=== PATIENT | female | born 2000 | race Caucasian/White ===

== ENCOUNTER → 2020-06-19 | Outpatient (CLI) | payer OTHER ==
--- NOTE | 2020-06-19 18:51 | REP ---
INDICATION: CONGENTIAL MALFORMATION OF VIGINIA. Evaluate vaginal wall for cyst. COMPARISON: None. TECHNIQUE: Transabdominal and transvaginal scanning were performed. FINDINGS: Uterine dimensions are normal at 7.9 x 2.9 x 3.6 cm. Endometrial echo is 0.2 cm thick and centrally placed. There is a trace of free fluid is seen in the cul-de-sac. Visualized bladder burris are smooth. There is a small elongate hypoechoic area in the vaginal wall to the left of midline measuring 2.4 x 0.9 x 1.6 cm consistent with the history of vaginal wall cyst. The right ovary has dimensions of 2.1 x 1.8 x 1.7 cm. Doppler flow is present in the ovaries bilaterally. The left ovary dimensions are normal as well at 1.9 x 1.1 x 1.1 cm. It's Doppler flow was normal with resistive index of . IMPRESSION: There is an anechoic structure in the vaginal wall to the left of midline consistent with a cyst, 2.4 cm in greatest diameter. Otherwise normal pelvic sonography. <Electronically signed by Dinesh Levy > 06/19/20 [id number]
== END ==
LOC: M RAD 16:06
PROVIDERS: ATTEND Obstetrics & Gynecology
DX: Q52.4 Other congenital malformations of vagina (principal)

== ENCOUNTER → 2020-06-30 | Outpatient (CLI) | payer OTHER ==
[~2020-06-30] MED LIST: NORE1TAB7
== END ==
LOC: M LABSMTC 08:34
PROVIDERS: ATTEND Anesthesiology
DX: Z01.812 Encounter for preprocedural laboratory examination (principal); Z20.822 Contact with and (suspected) exposure to COVID-19

== ENCOUNTER 2020-07-05 11:06 | Day surgery (SDC) | payer OTHER ==
[~2020-07-05] VITALS: Ht 170.2 cm; Wt 61.2 kg
[~2020-07-05 11:06] MED LIST changes: +LIDOCAINE 1% MDV 20ML VIAL SQ PRN; +LR 1,000 ML IV ONE
--- OUTSIDE RECORDS SUMMARY | 2020-07-05 11:13 | CCD | Continuity of Care Document ---
Author Author Rossy BENSON Organization Unknown Address [address] [place] [address] Phone [phone] Problems Description No Active Problems Social History Type Date Description Comments Sex Unknown Tobacco Use Start: Unknown Never Smoked Cigarettes Tobacco Use Start: Unknown Non-smoker, Non-drinker, Non-romario g User Smoking Status Reviewed: 06/06/20 Non-smoker, Non-drinker, Non- drug User Tobacco Use Start: Unknown Patient has never smoked Allergies, Adverse Reactions, Alerts Description No Known Drug Allergies Medications Active Medications SIG Qnty Indications Ordering Provide r Date Gildess 07/11 1-20mg-mcg Tablets one by mouth daily times 3 weeks then skip a week 63tabs Janell Montgomery WHNP 01/07/2018 Multivitamin Adult Tablets 1 by mouth every day Unknown Immunizations Description No Information Available Vital Signs Date Vital Result Comment 06/06/2020 2:42pm BP Systolic 122 mmHg BP Diastolic 64 mmHg Height 67.5 inches 5'7.50" Weight 136.00 lb BMI (Body Mass Index) 21.0 kg/m2 Body Mass Index Percentile 41 % BSA (Body Surface Area) 1.73 m2 01/24/2019 9:20am BP Systolic 108 mmHg BP Diastolic 66 mmHg Height 67.5 inches 5'7.50" Weight 136.00 lb BMI (Body Mass Index) 21.0 kg/m2 Body Mass Index Percentile 44 % BSA (Body Surface Area) 1.73 m2 Results Description No Information Available Procedures Description No Information Available Medical Devices Description No Information Available Encounters Type Date Location Provider Dx Diagnosis Office Visit 06/06/2020 2:45p [facility] third Haven Benson MD N9 4.12 Deep dyspareunia R10.813 Right lower quadrant abdomin al tenderness 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 Z01.411 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 ) (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) w abnormal findings Z12.4 Encounter for screening for malignant neoplasm of cervix Z12.39 Encounter for oth screening for malignant neoplasm of breast Assessments Date Code Description Provider 06/06/2020 N94.12 Deep dyspareunia Haven Benson MD 06/06/2020 R10.813 Right lower quadrant abdominal t enderness Haven Benson MD 06/06/2020 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 o f vagina Haven Benson MD 06/06/2020 Z01.411 Encounter for gyneco logical examination (general) (routine) with abnormal findings Haven Benson MD 06/06/2020 Z12.4 Encounter for screening for abisai gnant neoplasm of cervix Haven Benson MD 06/06/2020 Z12.39 Encounter for other screening for malignant neoplasm of breast Haven Benson MD Plan of Treatment Future Appointment(s):* 07/18/2020 11:45 am - Haven Benson MD at [facility] * 07/05/2020 11:00 am - Haven Benson MD at [facility] electrician third * 06/19/2021 10:00 am - Haven Benson MD at [facility] electrician third 06/06/2020 - Haven Benson MD* N94.12 Deep dyspareunia * R10.813 Right lower quadrant abdominal tenderness * 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
--- OUTSIDE RECORDS SUMMARY | 2020-07-05 11:13 | CCD ---
Author Author [facility] Organization [facility] Address Unknown Phone Unavailable Care Team Providers Care Tile Mechanic Name Role Phone Dewayne BENSON MD Unavailable Unavailable Dewayne BENSON MD Unavailable Unavailable Dewayne BENSON MD Unavailable Unavailable BENSON, L NILDA PERALTA Unavailable Unavailable BENSON, Dewayne MUNGUIA MD Unavailable Unavailable BENSON, L NILDA PERALTA Unavailable Unavailable BENSON L NILDA PERALTA Unavailable Unavailable BENSON L NILDA PERALTA Unavailable Unavailable BENSON L NILDA PERALTA Unavailable Unavailable BENSONDewayne MD Unavailable Unavailable BENSON L NILDA PERALTA Unavailable Unavailable BENSONDewayne MD Unavailable Unavailable BENSON, L NILDA PERALTA Unavailable Unavailable BENSONDewayne MD Unavailable Unavailable BENSON L NILDA PERALTA Unavailable Unavailable BENSON, L NILDA PERALTA Unavailable Unavailable BENSON, L NILDA PERALTA Unavailable Unavailable BENSON, L NILDA PERALTA Unavailable Unavailable BENSON, Dewayne MUNGUIA MD Unavailable Unavailable BENSON L NILDA PERALTA Unavailable Unavailable BENSON L NILDA PERALTA Unavailable Unavailable BENSON, L NILDA PERALTA Unavailable Unavailable BENSON, L NILDA PERALTA Unavailable Unavailable BENSON, L NILDA PERALTA Unavailable Unavailable BENSON L NILDA PERALTA Unavailable Unavailable BENSON, L NILDA PERALTA Unavailable Unavailable BENSONDewayne MD Unavailable Unavailable BENSON L NILDA PERALTA Unavailable Unavailable BENSON, Dewayne MUNGUIA MD Unavailable Unavailable KELLEY, L NILDA PERALTA Unavailable Unavailable BENSON, L NILDA PERALTA Unavailable Unavailable BENSON, L NILDA PERALTA Unavailable Unavailable BENSON, L NILDA PERALTA Unavailable Unavailable Dewayne BENSON MD Unavailable Unavailable Dewayne BENSON MD Unavailable Unavailable KELLEY L NILDA PERALTA Unavailable Unavailable KELLEY L NILDA PERALTA Unavailable Unavailable KELLEY L NILDA PERALTA Unavailable Unavailable KELLEY L NILDA PERALTA Unavailable Unavailable KELLEY L NILDA PERALTA Unavailable Unavailable KELLEY, L NILDA PERALTA Unavailable Unavailable KELLEY L NILDA PERALTA Unavailable Unavailable Re-disclosure Warning The records that you are about to access may contain information from federally-assisted alcohol or drug abuse programs. If such information is present, then the following federally mandated warning applies: This information has been disclosed to you from records protected by federal confidentiality rules (42 CFR part 2). The federal rules prohibit you from making any further disclosure of this information unless further disclosure is expressly permitted by the written consent of the person to whom it pertains or as otherwise permitted by 42 CFR part 2. A general authorization for the release of medical or other information is NOT sufficient for this purpose. The Federal rules restrict any use of the information to criminally investigate or prosecute any alcohol or drug abuse patient.The records that you are about to access may contain highly sensitive health information, the redisclosure of which is protected by Article 27-F of the [facility] Public Health law. If you continue you may have access to information: Regarding HIV / AIDS; Provided by facilities licensed or operated by the [facility] Office of Mental Health; or Provided by the [facility] Office for People With Developmental Disabilities. If such information is present, then the following [facility] mandated warning applies: This information has been disclosed to you from confidential records which are protected by state law. State law prohibits you from making any further disclosure of this information without the specific written consent of the person to whom it pertains, or as otherwise permitted by law. Any unauthorized further disclosure in violation of state law may result in a fine or assisted sentence or both. A general authorization for the release of medical or other information is NOT sufficient authorization for further disc losure. 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 CLERK) Unknown Unknown Problem MEDENT ([facility] Unknown Unknown Encounters Encounter Providers Location Date Indications Data Source(s ) Outpatient Attender: NILDA BENSON MD [facility] salon leader 01:45:00 PM EST MEDENT ([facility] COMPUTER FORWARDING SYSTEM MARKUP CLERK) Insurance Providers Payer name Policy type / Coverage type Policy ID Covered constitution party ID Covered constitution party's relationship to gan Policy Gan Plan Information [facility] [id number] MO2 [id number] [facility] [id number] MO2 [id number] UMR O UNAVAILABLE C UNAVAILA BLE Umr Commercial [id number] Family Dependent [id number] Umr Commercial [id number] Family Dependent Y1 [id number] [place] Ppo Commercial [id number] Family Dependent [id number] Umr Commercial [id number] Family Dependent Y1 [id number] Umr Commercial [id number] Family Dependent Y1 [id number] [place] Commercial [id number] Family Dependent [id number] [employer] Ppo Commercial [id number] Family Dependent [id number] [place] Commercial Family Dependent [place] Ppo Commercial Family Dependent POMCO PPO O [id number] [place] Commercial Family Dependent POMCO [id number] MO2 [id number] POMCO [id number] 18 [id number] Results ID Date Data Source [id number] 06/30/2020 08:30:00 AM EST [facility] Name Value Range Interpretation Code Description Data Haylee rce(s) Supporting Document(s) SARS coronavirus 2 RNA Not Detected [facility] This lab was ordered by [facility] and reported by [facility]. ID Date Data Source [id number] 06/06/2020 12:00:00 PM EST MEDENT ([facility] COMPUTER FORWARDING SYSTEM MARKUP CLERK) Name Value Range Interpretation Code Description Data Haylee rce(s) Supporting Document(s) TP Reflex HPV ASCUS Laboratory test result MEDENT ([facility] COMPUTER FORWARDING SYSTEM MARKUP CLERK) SPECIMEN PART------ A. Cervical, Endocervical, ThinPrep Pap (Route Service Manager) CYTOLOGY HX-------- Date of Last Menstrual Period: 06/04/20 Other Information:Previous Normal Pap: 01/24/19 Oral Contraceptives FINAL DIAGNOSIS---- INTERPRETATION: Negative for Intraepithelial Lesion or Malignancy. SPECIMEN ADEQUACY:Satisfactory for evaluation. Endocervical/transformation zone component present. TP Reflex HPV ASCUS Laboratory test result MEDENT ([facility] COMPUTER FORWARDING SYSTEM MARKUP CLERK) Procedure Social History Code Duration Value Status Description Data Source(s ) Smoking 06/06/2020 12:00:00 AM EST Non-smoker, Non-drink er, Non-drug User completed Non-smoker, Non-drinker, Non-drug User MEDENT (Raul Fishman man COMPUTER FORWARDING SYSTEM MARKUP CLERK) Vital Signs ID Date Data Source UNK Name Value Range Interpretation Code Description Data Source(s) Body surface area Derived from formula 1.73 m2 1.73 m2 MEDENT ([facility] [employer]PUTER FORWARDING SYSTEM MARKUP CLERK) Body mass index (BMI) [Percentile] 41 % 4 1 % MEDENT ([facility] [employer]PUTER FORWARDING SYSTEM MARKUP CLERK) Body mass index (BMI) [Ratio] 21.0 kg/m2 21.0 k g/m2 MEDENT ([facility] COMPUTER FORWARDING SYSTEM MARKUP CLERK) Body weight 136.00 [lb_av] 136.00 [lb_av] MEDEN T ([facility] COMPUTER FORWARDING SYSTEM MARKUP CLERK) Body height 67.5 [in_i] 67.5 [in_i] MEDENT (Erick harding Woman COMPUTER FORWARDING SYSTEM MARKUP CLERK) 5'7.50" Diastolic blood pressure 64 mm[Hg] 64 mm[Hg] MEDENT ([facility] COMPUTER FORWARDING SYSTEM MARKUP CLERK) Systolic blood pressure 122 mm[Hg] 122 mm[Hg] M EDENT ([facility] COMPUTER FORWARDING SYSTEM MARKUP CLERK)
--- OUTSIDE RECORDS SUMMARY | 2020-07-05 11:13 | CCD | Continuity of Care Document ---
Author Author Rossy BENSON Organization Unknown Address [address] [place] [phone] Phone [phone] Problems Description No Active Problems Social History [...] BSA (Body Surface Area) 1.73 m2 Results Test Acquired Date Facility Test Result H/L Range Note Thinprep W/Reflex HR HPV If Asc-US 06/06/2020 Propa th TP Reflex HPV ASCUS Normal Normal 1 TP Reflex HPV ASCUS SEE IMAGE 1 SPECIME N PART A. Cervical, Endocervical, ThinPrep Pap (Assembly Manager) CYTOLOGY HX-------- Date of Last Menstrual Period: 06/04/20 Other Information:Previous Normal Pap: 01/24/19 Oral Contraceptives FINAL DIAGNOSIS---- INTERPRETATION: Negative for Intraepithelial Lesion or Malignancy. SPECIMEN ADEQUACY:Satisfactory for evaluation. Endocervical/transformation zone component present. 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 ) (routine) w abnormal findings Z12.4 Encounter for screening for malignant neoplasm of cervix Z12.39 Encounter for ot screening for malignant neoplasm of breast Assessments [...] 11:45 am - Haven Benson MD at [facility] director of casework services * 07/05/2020 11:00 am - Haven Benson MD at [facility] * 06/19/2021 10:00 am - Haven Benson MD at [facility] director of casework services 06/06/2020 - Haven Benson MD* N94.12 Deep dyspareunia * R10.813 Right lower quadrant abdominal tenderness * 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
--- OUTSIDE RECORDS SUMMARY | 2020-07-05 11:13 | CCD | Continuity of Care Document ---
Author Author Rossy BENSON Organization Unknown Address [address] [place] [address] Phone [phone] Problems Description No Active Problems Social History Type Date Description Comments Sex Unknown Tobacco Use Start: Unknown Never Smoked Cigarettes Tobacco Use Start: Unknown Non-smoker, Non-drinker, Non-romario g User Smoking Status Reviewed: 01/24/19 Non-smoker, Non-drinker, Non- drug User Tobacco Use [...] Medical Devices Description No Information Available Encounters Description No Information Available Assessments Date Code Description Provider 06/06/2020 N94.12 [...] Benson MD Plan of Treatment Future Appointment(s):* 06/19/2021 10:00 am - Haven Benson MD at [facility] cover assembler 06/06/2020 - Haven Benson MD* N94.12 Deep [...]
[2020-07-05] MEDS ORDERED: LIDOCAINE 2% 100MG/5ML SDV (FOR ANES.) As Ordered ONE (14:36)
[2020-07-05] MEDS ORDERED: propofoL 200 MG/20 ML VIAL As Ordered ONE (14:36)
[2020-07-05] MEDS ORDERED: MIDAZOLAM INJ 2MG/2ML VIAL (J2250 PER 1MG) As Ordered ONE (14:42)
[2020-07-05] MEDS ORDERED: fentaNYL 100 MCG/2 ML INJECTION (J3010) As Ordered ONE ×3 (14:43→18:20)
[2020-07-05] MEDS ORDERED: dexameTHASONE 4 MG/ML 1ML VIAL (J1100 PER 1MG) As Ordered ONE (15:04)
[2020-07-05] MEDS ORDERED: ONDANSETRON 4MG/2ML VIAL As Ordered ONE ×2 (15:04→18:21)
[2020-07-05] MEDS ORDERED: ceFAZolin 2 GM/D5W 50 ML IV BAG (J0690 PER 500MG) As Ordered ONE (15:21)
[2020-07-05] MEDS ORDERED: METHYLENE BLUE 0.5% (5MG/ML) 10 ML AMP (PROVAYBLUE) As Ordered ONE (15:26)
[2020-07-05] MEDS ORDERED: LACRILUBE (AKWA TEARS) OPHTH OINT 3.5 GM As Ordered ONE (16:28)
[2020-07-05] MEDS ORDERED: CONRAY-60 60% 50ML VIAL (Q9961) As Ordered ONE (16:35)
[2020-07-05] MEDS ORDERED: KETOROLAC 60MG 2ML VIAL As Ordered ONE (17:37)
[2020-07-05] MEDS ORDERED: ACETAMINOPHEN 1000MG 100ML IV BTL (OFIRMEV) (J0131 PER 10MG) As Ordered ONE (17:37)
[2020-07-05] MEDS ORDERED: PERCOCET 5MG/325MG TAB As Ordered ONE (18:20)
[2020-07-05] MEDS: PERCOCET 5MG/325MG TAB PO PRN ×2 (18:38→20:06)
[2020-07-05] MEDS ORDERED: LR 1,000 ML IV SCH ×2 (18:45→19:00)
[2020-07-05] MEDS ORDERED: METOCLOPRAMIDE INJ 10MG/2ML VIAL (J2765 PER 1) IV PRN (18:45)
[2020-07-05] MEDS ORDERED: fentaNYL 100 MCG/2 ML INJECTION (J3010) IV PRN (18:45)
[2020-07-05] MEDS ORDERED: ONDANSETRON 4MG/2ML VIAL IV PRN (18:45)
[2020-07-05] MEDS ORDERED: NORCO, ANEXSIA 5/325MG TABLET (HYDROcodone/ACETAMINOPHEN) PO PRN (19:00)
[2020-07-05] MEDS ORDERED: IBUPROFEN 600MG TAB PO PRN (19:00)
[2020-07-05 21:00] VITALS: BP 117/59
--- NOTE | 2020-07-06 08:46 | RO ---
OPERATIVE NOTE DATE OF OPERATION: 07/05/2020 PREOPERATIVE DIAGNOSIS: Inadvertent cystotomy. POSTOPERATIVE DIAGNOSIS: Inadvertent cystotomy. PROCEDURE: Cystoscopy, bilateral retrograde pyelograms with intraoperative images, left ureteral stent placement, clot evacuation. SURGEON: Tutu Regalado MD CLAIMS SPECIALIST: None. ANESTHESIA: General. OPERATIVE INDICATIONS: This is a 20-year-old female who was brought to the operating room by Dr. 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 During the procedure there was an inadvertent cystotomy. During her closure of the cystotomy the trigone of the bladder appeared to be more puckered up than normal and there was concern about potential obstruction to the left ureter due to this. I was called to the operating room to evaluate and help. DESCRIPTION OF PROCEDURE: At the time I came in the patient was already prepped and draped in dorsal lithotomy position. The closure of the bladder had been performed. Of note, the bladder closure appeared to be watertight. Rigid cystoscopy was performed. There was a moderate amount of blood clots at the base of the bladder. A Urovac was then utilized to evacuate the clots from the bladder. A Bugbee was utilized to cauterize some bleeding vessels at the middle of the trigone. Once done I examined the bladder and the trigone did appear a little bit abnormal due to the closure. With that said, both ureteral orifices did appear to efflux clear urine. At this point a 5-Tuvaluan open-ended ureteral catheter was utilized to obtain a retrograde pyelogram on the right side first. There was no extravasation. There were no filling defects and there was no hydronephrosis. Next a retrograde pyelogram was performed on the left side. Similarly, there was no extravasation, filling defects, or hydronephrosis. Given the closure was on the left side of the bladder and there was concern about still possible obstruction to the left ureter. I therefore decided to place a stent on that side. A guidewire was advanced up the left collecting system and the 5-Tuvaluan open-ended ureteral catheter was removed. The guidewire was utilized to advance a 7-Tuvaluan x 22-32 cm JJ ureteral stent up into the left collecting system. Of note, there did appear to be a little bit more resistance than normal while advancing the stent up the left collecting system. With that said, I was also able to get the proximal end extended into the left kidney. The guidewire was then removed and there were adequate curls of the stent in the left renal pelvis and in the bladder. I then confirmed good hemostasis inside the bladder and then removed the cystoscope. An 18-Tuvaluan Tavares catheter was inserted into the bladder. The balloon was filled with 10 mL of sterile water and the catheter was connected to gravity drainage. This marked the conclusion of the procedure. The patient was taken out of dorsal lithotomy position, awakened from anesthesia and transferred to the recovery room in stable condition. ESTIMATED BLOOD LOSS: 10 mL. COMPLICATIONS: None. SPECIMEN: None. PLAN: I will keep the patient's catheter in for 2 weeks. Her stent will be kept in for at least 2 weeks as well. I will arrange follow up in urology office for both catheter and stent removal. A cystogram will be done prior to removal of the catheter. [place]
--- NOTE | 2020-07-06 09:01 | RO ---
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 POSTOPERATIVE DIAGNOSIS: PROCEDURE: Drainage, mucous cyst collection versus diverticulum with cystotomy, cystotomy repair and consultation with urologist for left-sided stent placement. She also had cystoscopy and retrogrades with that of course cystotomy prior to that. SURGEON: Haven Chavez MD [employer]: ANESTHESIA: LMA. BRIEF DESCRIPTION OF PROCEDURE AND FINDINGS: Rossy was brought to the operating room where sufficient LMA anesthesia was induced. She was prepped, draped and positioned in the usual normal sterile fashion. The bladder was emptied in an uncomplicated way. An Allis was used to grasp the cyst which was far closer to the cervix than typical but looked like a typical Rodriguez duct cyst. Caudad to cephalad lateral incision was made over the surface of the cyst. Considerable mucous was drained out, extended cephalad more than I am accustomed to but definitely appeared to be a Rodriguez's duct cyst. With an Allis on the edge of the cyst wall itself and my finger within the cyst, we used the to cut around the cyst. We were dissecting the vaginal wall back and we dissected some posteriorly and then a little very carefully medially, trying avoid those lateral vaginal vessels and then we were working again in this fashion anteriorly and it became apparent that the cyst was much deeper and further than I was accustomed to and then I passed my finger cephalad even more. Something gave and we had a little bit of looser fluid which was concerning of course. We used the metal catheter with which we had drained the bladder to test the bladder and it became apparent that we had entered into the bladder just to the left of the midline anteriorly, of course very close to the cervix so in a very concerning area. This cystotomy was large enough so my finger could fit so I knew that we could not scope her until we had it closed enough to even get a look at what was going on so we did a vaginal closure with a multilayer purse-string closure, first layer 4-0 Chromic, second layer 2-0 Vicryl and then the third layer 2-0 Vicryl, etc and then we performed cystotomy. As expected there was air and blood within the bladder. The right ureter appeared to be normal, appeared to be jetting urine without difficulty but to the left lateral aspect of the trigone, there was a clear injury and this was puckered in a sense that it just distorted all of the anatomy and it was clear that that closure was not optimal even though, of course, all the mucosa was reapproximated, it was just not an optimal anatomical repositioning of the tissue so we took that closure down and of course drained the bladder again, etc. We took all of the layers of that closure down and then working to place the tension cephalad to caudad to try to keep that injury which appeared to be running in that direction so I wanted to close it, taking the pressure off those tissues and then run transverse over that layer again to pickle pumper the layers and take the pressure off the closure and again rather than a purse-string this time, I did interrupted stitches in several layers, first going cephalad to caudad, then going transverse and then cephalad to caudad so that we could close it without that level of distortion and having done that, we did have a watertight repair. There was some bleeding just beyond the urethra and was still clearly an injury at the left lateral aspect at the edge of the trigone but there was a watertight repair and the ureter appeared to be patent and jetting urine and certainly the tissues were far less distorted by this closure. This seemed to at least have an opportunity to close well. During this time period, we had consulted with urology and Dr. Regalado was kind enough to come back in since we had this injury right at the edge of the trigone and within a centimeter of the urethral orifice. He did cystoscopy with bilateral retrogrades and a left stent placement as will most likely be documented by his own dictation. He also cauterized some of those bleeders. While waiting for him to come in, we did finish the closure of the vaginal wall. I did not have a separate cyst to find with the bladder closed so I do not know if there was a distended cyst but just deflated so fast or whether this was actually a diverticulum. I have never seen a diverticulum in that location, I mean they are not that unusual off the urethra but that does not seem to be a typical location. That said, with the bladder closed, I did not have a separate cyst to excise. With the mucus that came out of the dissection, there was clearly no evidence of anything alarming and I certainly did not want to remove any tissue that she needed for the closure so we went ahead and made sure that we had a good reapproximation of the vagina, again multiple layers, closing over this wound and then a running locked stitch in the skin itself with care taken that we did not have any undue tension on any of that closure to optimize healing and that had been done and closed prior to the cystoscopy by Dr. Regalado. Overall, after he completed his aspect of the surgery, the entire procedure was done, ESTIMATED BLOOD LOSS: About 50 mL FLUID REPLACEMENT: Crystalloid. COMPLICATIONS: As noted, there was a cystotomy and this was certainly not an expectation prior to the case although the patient had been warned that that could happen but certainly not an expectation and she did have repair in the case and will be having that stent and the Tavares for approximately two weeks. She will be having an evaluation before then. CONDITION AND DISPOSITION: Despite the protracted addition to the case, Rossy tolerated the procedure well and was recovering in the recovery room in good condition.
--- NOTE | 2020-07-06 13:26 | REP ---
INDICATION: INTRAOP NEED. COMPARISON: None. TECHNIQUE: Multiple C-arm views performed of abdomen and pelvis. FINDINGS: Contrast is introduced into the right ureter which appears normal in caliber with no definite stricture. Visualized right pelvocaliceal system that is opacified appears unremarkable. Left ureter is also injected with contrast and demonstrates normal caliber with no definite stricture. Only the very inferior portion of the left pelvocaliceal system is visualized and is grossly unremarkable. A left ureteral stent is placed. The proximal end is at the coiled in the left renal pelvis. The distal end is coiled in the urinary bladder. IMPRESSION: 13.2 seconds fluoroscopy time utilized. <Electronically signed by Vishal Hernandez > 07/06/20 [id number]
== END 2020-07-05 21:40 | disposition home or self-care (01) ==
LOC: M SDC 11:06
PROVIDERS: ATTEND Obstetrics & Gynecology
DX: N94.10 Unspecified dyspareunia (principal); Q52.4 Other congenital malformations of vagina; N99.71 Accidental puncture and laceration of a genitourinary system organ or structure during a genitourinary system procedure
CPT/HCPCS: 52001; 52332; 57135; 74420; 81025; C1769; C2617; J0131; J0690; J1100; J1885; J2250; J2405; J3010; Q9961; Q9968

== ENCOUNTER → 2020-07-23 | Outpatient (CLI) | payer OTHER ==
[~2020-07-23] MED LIST changes: +CYSTO-CONRAY II 17.2% 250ML VIAL (Q9958) As Ordered ONE; -LIDOCAINE 1% MDV 20ML VIAL SQ PRN; -LR 1,000 ML IV ONE
--- NOTE | 2020-07-23 14:15 | REP ---
INDICATION: BLADDER LEAK. COMPARISON: None TECHNIQUE: This procedure was performed by Paulette Fenton [facility], under the direct supervision of Dr. Levy. Images were reviewed with Dr. Levy prior to dictation. The patient arrived in the department with an indwelling Tavares catheter. Two hundred fifty ml of Cysto-Conray II was instilled into the bladder in a retrograde flow. Multiple fluoroscopic radiographs were obtained. FINDINGS: The bladder is normal in position and contour. There is no evidence of extravasation of contrast. There is no evidence of restricted diffusion. Left-sided urethral reflux was visualized through the stent. There is essentially no postvoid residual. IMPRESSION: No extravasation of contrast. 0.1 minutes of fluoroscopy time was utilized for this procedure. Some fluoroscopic images are performed with last image hold technology. These images require no additional radiation. <Electronically signed by Paulette Fenton > 07/23/20 1237 <Electronically signed by Dinesh eLvy > 07/23/20 1416
== END ==
LOC: M RADPRO 10:17
PROVIDERS: ATTEND Urology
DX: R32 Unspecified urinary incontinence (principal)
CPT/HCPCS: 51610; 74430; Q9958

== ENCOUNTER 2023-01-03 08:09 | Emergency (ER) | payer OTHER ==
[~2023-01-03] VITALS: Ht 170.2 cm; Wt 63.2 kg
[~2023-01-03 08:09] MED LIST changes: -CYSTO-CONRAY II 17.2% 250ML VIAL (Q9958) As Ordered ONE
[2023-01-03 08:11] VITALS: BP 119/82; TEMP 98.4; O2SAT 99
[2023-01-03 10:47] LABS: BASO % 0.4 % (0.0-1.0); EOS # 0.2 10^3/uL (0.0-0.5); EOS % 1.4 % (0.0-3.0); HEMATOCRIT 40.4 % (36.0-47.0); HEMOGLOBIN 12.8 g/dl (12.0-15.5); MEAN CORPUSCULAR HEMOGLOBIN 30.5 pg (27.0-33.0); MEAN CORPUSCULAR HGB CONC 31.7 g/dl (32.0-36.5); MEAN CORPUSCULAR VOLUME 96.2 fl (80.0-96.0); MONO # 0.9 10^3/uL (0.0-0.8); MONO % 8.3 % (2.0-8.0); NEUTROPHILS # 8.3 10^3/uL (1.5-8.5); NEUTROPHILS % 79.7 % (36.0-66.0); PLATELET COUNT, AUTOMATED 227 10^3/uL (150-450); WHITE BLOOD COUNT 10.5 10^3/uL (4.0-10.0)
[2023-01-03 11:08] LABS: LIPASE 22 U/L (12-53)
[2023-01-03 11:10] LABS: ALKALINE PHOSPHATASE 59 U/L (46-116); ALT/SGPT 13 U/L (7.0-40); AST/SGOT < 8 U/L (<34); BILIRUBIN,DIRECT 0.2 MG/DL (<0.4); BILIRUBIN,TOTAL 0.6 MG/DL (0.3-1.2); BLOOD UREA NITROGEN 10 MG/DL (9-23); CALCIUM LEVEL 9.3 MG/DL (8.5-10.1); CARBON DIOXIDE LEVEL 28 MMOL/L (20-31); CHLORIDE LEVEL 106 MMOL/L (98-107); GLOMERULAR FILTRATION RATE > 60.0 (>60); GLUCOSE, FASTING 88 MG/DL (60-100); POTASSIUM SERUM 4.3 MMOL/L (3.5-5.1); SODIUM LEVEL 139 MMOL/L (136-145)
[2023-01-03 11:18] LABS: HCG, SERUM QUALITATIVE NEGATIVE (NEGATIVE)
[2023-01-03] MEDS ORDERED: SULF1TAB23 PO (12:24)
[2023-01-03] MEDS ORDERED: PHEN-372 PO (12:24)
[2023-01-03] MEDS ORDERED: ACETAMINOPHEN 500 MG TAB PO ONE (12:25)
== END 2023-01-03 12:31 | disposition home or self-care (01) ==
LOC: M ED 08:09
DX: N30.00 Acute cystitis without hematuria (principal); Z97.5 Presence of (intrauterine) contraceptive device